=== PATIENT | female | born 1935 | race Caucasian/White ===

== ENCOUNTER 2017-06-13 10:08 | Emergency (ER) | payer OTHER, MEDICARE ==
[~2017-06-13] VITALS: Ht 160 cm; Wt 52.3 kg
[2017-06-13] MEDS ORDERED: OMEP10CASR PO (10:36)
[2017-06-13] MEDS ORDERED: CALC600T57 PO (10:36)
[2017-06-13] MEDS ORDERED: MELA3TAB49 PO (10:36)
[2017-06-13] MEDS ORDERED: SYMB80INH INH (10:36)
[2017-06-13] MEDS ORDERED: FISH1000 PO (10:36)
[2017-06-13] MEDS ORDERED: ALBU83IN INH (10:36)
[2017-06-13] MEDS ORDERED: LEVO75TA4 PO (10:36)
[2017-06-13] MEDS ORDERED: SING10TA32 PO (10:36)
[2017-06-13] MEDS ORDERED: AMLO-138 PO (10:36)
[2017-06-13] MEDS ORDERED: ZYRT10CA PO (10:36)
[2017-06-13] MEDS ORDERED: TOPR25TA PO (10:36)
[2017-06-13] MEDS ORDERED: ONDANSETRON 4MG/2ML VIAL (J2405) IV ONE (10:45)
[2017-06-13] MEDS ORDERED: MORPHINE 4 MG/ML 1ML SYRINGE IV ONE (10:45)
--- NOTE | 2017-06-13 11:12 | REP ---
CT study of the cervical spine without contrast: History: Trauma. Technique: Helical scanning is acquired and overlapping 2 mm high resolution axial images were generated and reviewed at bone and soft tissue window settings. Coronal and sagittal multiplanar re-formations images are generated. CT findings: There is no evidence of cervical spine element fracture. No skull base fracture is seen. Cervical vertebral body heights are preserved. Alignment is normal. Facet joints are normally aligned bilaterally at each cervical level on multiplanar re-formations images. There is no evidence of intraspinal or paraspinal hematoma. No extra vertebral abnormality is seen. There are moderate degenerative spondylosis changes with diffuse bilateral facet osteoarthritis and hypertrophy. Degenerative disc changes are seen most pronounced at C5-6 and C3-4 with disc space narrowing at these levels. There is straightening of the normal cervical lordosis. Osteoarthritis is seen at C1-2. Impression: Degenerative cervical spondylosis changes moderate in degree. Otherwise negative CT study of the cervical spine without contrast. No fracture seen. Signed by Kel Chavira MD 06/13/2017 11:04 A
--- NOTE | 2017-06-13 11:24 | REP ---
Right elbow for views : There is no fracture or dislocation. Mineralization and joint spaces are normal. There are no calcifications or foreign bodies. Impression: Negative right elbow . Signed by Ezekiel Ivy MD 06/13/2017 11:16 A
--- NOTE | 2017-06-13 11:26 | REP ---
Right forearm two views: There is a nondisplaced transverse fracture of the distal radius metaphysis. There is no dislocation. No other fracture is identified. The radius styloid process appears congenitally nonfused. Signed by Ezekiel Ivy MD 06/13/2017 11:18 A
--- NOTE | 2017-06-13 11:28 | REP ---
There is a nondisplaced, non angulated transverse fracture of the distal radius metaphysis. There is a nondisplaced fracture at the base of the ulnar styloid. There is an accessory ossicle at the tip of the radius styloid process, likely an unfused ossification center. Carpal joint spaces and ossicles are unremarkable. Signed by Ezekiel Ivy MD 06/13/2017 11:20 A
[2017-06-13] MEDS ORDERED: PERCOCET 5MG/325MG TAB PO ONE (12:15)
[2017-06-13] MEDS ORDERED: NORCOTAB PO (13:28)
[2017-06-13 13:46] VITALS: BP 129/64
== END 2017-06-13 14:00 | disposition home or self-care (01) ==
LOC: M ED 10:08
DX: S52.501A Unspecified fracture of the lower end of right radius, initial encounter for closed fracture (principal); S52.614A Nondisplaced fracture of right ulna styloid process, initial encounter for closed fracture; S51.011A Laceration without foreign body of right elbow, initial encounter; V09.20XA Pedestrian injured in traffic accident involving unspecified motor vehicles, initial encounter; Y92.410 Unspecified street and highway as the place of occurrence of the external cause; Y93.01 Activity, walking, marching and hiking; Y99.9 Unspecified external cause status; M47.892 Other spondylosis, cervical region; I10 Essential (primary) hypertension; K21.9 Gastro-esophageal reflux disease without esophagitis; E03.9 Hypothyroidism, unspecified; Z79.899 Other long term (current) drug therapy
CPT/HCPCS: 72125; 73080; 73090; 73110; 96374; 96375; 99284; J2405